=== PATIENT | male | born 1960 | race Caucasian/White ===

== ENCOUNTER → 2017-03-19 | Outpatient (CLI) | payer BC, OTHER ==
--- NOTE | 2017-03-19 16:52 | CT ---
EXAM DESCRIPTION: Chest w/Contrast CLINICAL HISTORY: 56 years, Male, SOLITARY NODULE OF LUNG COMPARISON: Chest 1 view October 31, 2016 TECHNIQUE: Thin-section axial CT images are obtained during rapid bolus administration of nonionic IV contrast media. Reconstructed MPR images are created and reviewed as well. FINDINGS: Enhanced examination of the chest demonstrates a small 3 mm subpleural nodule in the medial posterior inferior left lung base behind the cardiac silhouette. This does not represent the abnormality seen on prior radiograph and no specific abnormality in the lateral left lung base is evident. In the right upper lung field posteriorly there is a small 2 x 4 mm subpleural nodule. Ill-defined approximate 3 mm nodule in the right middle lobe anteriorly is noted. No pleural effusions or emphysematous changes or acute inflammatory changes are noted. Abnormal hilar or mediastinal or thoracic inlet adenopathy is not apparent. Extensive coronary calcification along the course of the left anterior descending coronary artery is noted mild crowded pulmonary markings at the posterior right lung base in the left anterior lung base likely represent scarring or minor compressive atelectasis. The bony chest wall is unremarkable with modest degenerative changes. IMPRESSION: 1. A distinct left basilar pulmonary nodule to correspond with the plain film abnormality at the lateral left lung base is not apparent. 2. Multiple small 4 mm or less pulmonary nodules with at least one in the medial posterior left lung base and 2 subpleural in the right lung. Please see the Fleischner Society recommendations below for consideration of follow-up examination. 3. No acute inflammatory changes or other abnormalities are noted. As per Fleischner Society guidelines for follow-up and management of pulmonary nodules: For patient at low risk (minimal or absent history of smoking and of other known risk factors), no follow-up needed. For patient at high risk (history of smoking or of other known risk factors), recommend initial follow-up chest CT at 12 months; if unchanged, no further follow-up needed. Electronically signed by: Raj Christianson MD 03/19/2017 4:51 PM CDT
== END | disposition home or self-care (01) ==
LOC: CT 09:59
PROVIDERS: ATTEND Internal Medicine Pulmonary Disease
DX: R05 Cough (principal); R91.1 Solitary pulmonary nodule